=== PATIENT | male | born 1930 | race Caucasian/White ===

== ENCOUNTER 2017-07-01 08:43 | Inpatient (IN) | payer MEDICARE, BC ==
[2017-07-01 09:30] LABS: BASOPHILS % (AUTO) 0 % (0-3); EOSINOPHILS % (AUTO) 0 % (0-9); HEMATOCRIT 41 % (39-53); MEAN CORPUSCULAR HGB CONC 34.8 gm/dl (32.0-36.0); MEAN CORPUSCULAR VOLUME 87 fL (80-100); MONOCYTES % (AUTO) 4.8 % (0-12)
[2017-07-01 09:46] LABS: ALBUMIN 2.9 gm/dl (3.4-5.0); CALCIUM 8.7 mg/dl (8.5-10.1); POTASSIUM 4.4 mMol/L (3.5-5.1)
[2017-07-01] MEDS ORDERED: CEFTRIAXONE 1 GM PDS 1 GM in SODIUM CHLORIDE 0.9% 50 ML 50 ML IV ONE (10:19)
[2017-07-01] MEDS: SODIUM CHLORIDE 0.9% FLUSH 10 ML SOL IV PRN (10:35)
[2017-07-01] MEDS ORDERED: CEFTRIAXONE 1 GM PDS ONE (10:42)
[2017-07-01] MEDS ORDERED: ALBUTEROL NEB SOL 2.5MG/3ML 1 VIAL SOL NEB PRN (13:42)
[2017-07-01] MEDS: ALBUTEROL/IPRATROPIUM 1 VIAL SOL INH SCH ×2 (16:44→23:57)
[2017-07-01] MEDS ORDERED: WARFARIN SODIUM 3 MG TAB PO SCH (18:00)
[2017-07-02] MEDS: ALBUTEROL/IPRATROPIUM 1 VIAL SOL INH SCH ×4 (05:09→22:37)
[2017-07-02] MEDS ORDERED: CEFTRIAXONE 1 GM (PREMIX) 1 GM/50 ML SOL IV SCH (08:30)
[2017-07-02] MEDS ORDERED: CEFTRIAXONE 1 GM (PREMIX) 1 GM/50 ML SOL IV ONE (09:27)
[2017-07-02] MEDS: AZITHROMYCIN 250 MG TAB PO SCH (09:32)
[2017-07-02] MEDS: PREDNISONE 20 MG TAB PO SCH (09:32)
[2017-07-02] MEDS: SODIUM CHLORIDE 0.9% FLUSH 10 ML SOL IV PRN (09:34)
[2017-07-02] MEDS: SODIUM CHLORIDE 0.9% FLUSH 10 ML SOL IV SCH (16:02)
[2017-07-02] MEDS ORDERED: WARFARIN SODIUM 5 MG TAB PO SCH (18:00)
[2017-07-03] MEDS: SODIUM CHLORIDE 0.9% FLUSH 10 ML SOL IV SCH ×4 (02:42→22:50)
[2017-07-03] MEDS: ALBUTEROL/IPRATROPIUM 1 VIAL SOL INH SCH ×4 (05:51→22:45)
[2017-07-03 07:33] LABS: BASOPHILS % (AUTO) 0 % (0-3); CALCIUM 8.2 mg/dl (8.5-10.1); EOSINOPHILS % (AUTO) 0 % (0-9); HEMATOCRIT 35 % (39-53); MEAN CORPUSCULAR HGB CONC 33.7 gm/dl (32.0-36.0); MEAN CORPUSCULAR VOLUME 87 fL (80-100); NEUTROPHILS % (AUTO) 90.8 % (37-80)
[2017-07-03] MEDS: PREDNISONE 20 MG TAB PO SCH (08:39)
[2017-07-03] MEDS: AZITHROMYCIN 250 MG TAB PO SCH (08:39)
[2017-07-03] MEDS ORDERED: CEFTRIAXONE 1 GM PDS 1 GM in SODIUM CHLORIDE 0.9% 50 ML 50 ML IV ONE (09:00)
[2017-07-03] MEDS ORDERED: SODIUM CHLORIDE 0.9% 50 ML 50 ML IV ONE (09:06)
[2017-07-03] MEDS ORDERED: CEFTRIAXONE 1 GM PDS ONE (09:06)
[2017-07-03] MEDS: SODIUM CHLORIDE 0.9% FLUSH 10 ML SOL IV PRN (10:01)
[2017-07-03] MEDS ORDERED: WARFARIN SODIUM 4 MG TAB PO ONE (18:00)
[2017-07-04] MEDS ORDERED: ACETAMINOPHEN 325 MG PO ONE (02:40)
[2017-07-04] MEDS: SODIUM CHLORIDE 0.9% FLUSH 10 ML SOL IV SCH ×2 (05:17→10:01)
[2017-07-04] MEDS: ALBUTEROL/IPRATROPIUM 1 VIAL SOL INH SCH (05:57)
[2017-07-04] MEDS: AZITHROMYCIN 250 MG TAB PO SCH (10:01)
[2017-07-04] MEDS: PREDNISONE 20 MG TAB PO SCH (10:01)
[2017-07-04 10:40] VITALS: BP 132/74; PULSE 85; RESP 18; TEMP 98; O2SAT 96
== END 2017-07-04 11:05 | DRG 194 ==
LOC: ED 08:43 → ACUTE CARE 10:23
PROVIDERS: ADMIT Family Medicine; ATTEND Family Medicine
DX: J18.1 Lobar pneumonia, unspecified organism (principal); R09.02 Hypoxemia; Z87.891 Personal history of nicotine dependence; C34.90 Malignant neoplasm of unspecified part of unspecified bronchus or lung; I48.91 Unspecified atrial fibrillation; Z79.01 Long term (current) use of anticoagulants
CPT/HCPCS: 36415; 71045; 71260; 80048; 80053; 85025; 85610; 87804; 94150; 94640; 99238; 99283; 99284; J0696; J7620; Q9967; A6232; A9270-GY

== ENCOUNTER 2017-11-09 22:09 | Inpatient (IN) | payer MEDICARE, BC ==
[2017-11-09 22:36] LABS: BASOPHILS % (AUTO) 2 % (0-3); EOSINOPHILS % (AUTO) 0 % (0-9); HEMATOCRIT 37 % (39-53); HEMOGLOBIN 12.9 gm/dl (13.5-17.7); LYMPHOCYTES % (AUTO) 4.77 % (10-50); MEAN CORPUSCULAR HEMOGLOBIN 29.3 pg (27.0-32.0); MEAN CORPUSCULAR HGB CONC 35.1 gm/dl (32.0-36.0); MEAN CORPUSCULAR VOLUME 83 fL (80-100); MONOCYTES % (AUTO) 0.6 % (0-12); NEUTROPHILS % (AUTO) 92.6 % (37-80)
[2017-11-09 22:47] LABS: INR 5.38 (0.86-1.12)
[2017-11-09 22:48] LABS: ALBUMIN 1.9 gm/dl (3.4-5.0); BILIRUBIN,TOTAL 0.7 mg/dl (0.2-1.0); CALCIUM 9.4 mg/dl (8.5-10.1); CARBON DIOXIDE 35.6 mEq/L (21-32); CREATININE 1.17 mg/dl (0.80-1.30); POTASSIUM 4.6 mMol/L (3.5-5.1); TOTAL PROTEIN 7.8 gm/dl (6.4-8.2)
[2017-11-09] MEDS ORDERED: CEFTRIAXONE 1 GM PDS 1 GM in SODIUM CHLORIDE 0.9% 50 ML 50 ML IV ONE (22:52)
[2017-11-09] MEDS ORDERED: SOLUMEDROL 125 MG/2 ML 125 MG/2 ML PDS IV ONE (22:52)
[2017-11-09] MEDS ORDERED: CEFTRIAXONE 1 GM PDS ONE (23:02)
[2017-11-09] MEDS ORDERED: SOLUMEDROL 125 MG/2 ML 125 MG/2 ML PDS ONE (23:02)
[2017-11-09] MEDS ORDERED: ALBUTEROL HFA 60 PUFF/INHALER INH PRN (23:53)
[2017-11-09] MEDS ORDERED: ACETAMINOPHEN 325 MG PO PRN (23:53)
[2017-11-09] MEDS ORDERED: TRAMADOL HYDROCHLORIDE 50 MG TAB PO PRN (23:53)
[2017-11-09] MEDS ORDERED: GUAIFENESIN 200 MG/10 ML SOL PO PRN (23:53)
[2017-11-09] MEDS ORDERED: MAGNESIUM HYDROXIDE 30 ML SUS PO PRN (23:53)
[2017-11-10] MEDS: SODIUM CHLORIDE 0.9% 1000ML 1,000 ML IV SCH ×2 (00:47→14:15)
[2017-11-10] MEDS: AZITHROMYCIN 500 MG PDS IV SCH ×2 (01:03→23:57)
[2017-11-10] MEDS: ALBUTEROL/IPRATROPIUM 1 VIAL SOL INH PRN (04:11)
[2017-11-10 09:05] LABS: APPEARANCE,URINE Clear; BILIRUBIN,URINE NEGATIVE (NEGATIVE); COLOR,URINE Dark yellow; GLUCOSE, URINE (UA) NEGATIVE (NEGATIVE); KETONES,URINE NEGATIVE (NEGATIVE); LEUKOCYTE ESTERASE ,URINE NEGATIVE (NEGATIVE); NITRATE,URINE NEGATIVE (NEGATIVE); OCCULT BLOOD,URINE NEGATIVE (NEG-TRACE); UROBILINOGEN,URINE 0.2 (0.2-1.0 EU)
[2017-11-10 09:18] LABS: BACTERIA 2+ (< 1+); CRYSTALS NEGATIVE (0-3 AVE/HPF); EPITHELIAL CELLS NEGATIVE (SQUAMOUS); RBC,URINE NEGATIVE (0-3AV/HPF); WBC,URINE NEGATIVE (0-5AV/HPF)
[2017-11-10] MEDS ORDERED: DM/GUAIFENESIN SYRUP 10 ML SYRP PO PRN (09:30)
[2017-11-10] MEDS: SOLUMEDROL 125 MG/2 ML 125 MG/2 ML PDS IV SCH ×3 (09:42→20:55)
[2017-11-10] MEDS: FUROSEMIDE 20 MG TAB PO SCH (09:43)
[2017-11-10] MEDS: Non-Formulary Medication MISC (Umeclidinium Bromide [Incruse Ellipta] 1 PUFF) INH SCH (12:51)
[2017-11-10] MEDS: BUDESONIDE/FORMOTEROL 160/4.5 AER INH SCH (12:52)
[2017-11-11] MEDS: ALBUTEROL/IPRATROPIUM 1 VIAL SOL INH PRN ×2 (01:18→12:42)
[2017-11-11] MEDS: SOLUMEDROL 125 MG/2 ML 125 MG/2 ML PDS IV SCH ×2 (02:51→08:56)
[2017-11-11] MEDS: SODIUM CHLORIDE 0.9% 1000ML 1,000 ML IV SCH ×2 (06:05→16:11)
[2017-11-11 08:08] LABS: CALCIUM 8.5 mg/dl (8.5-10.1); CREATININE 0.97 mg/dl (0.80-1.30); POTASSIUM 4.5 mMol/L (3.5-5.1)
[2017-11-11 08:24] LABS: BASOPHILS % (AUTO) 0 % (0-3); EOSINOPHILS % (AUTO) 0 % (0-9); HEMATOCRIT 33 % (39-53); LYMPHOCYTES % (AUTO) 1.06 % (10-50); MEAN CORPUSCULAR HEMOGLOBIN 28.5 pg (27.0-32.0); MEAN CORPUSCULAR HGB CONC 33.3 gm/dl (32.0-36.0); MEAN CORPUSCULAR VOLUME 85 fL (80-100); MONOCYTES % (AUTO) 1.8 % (0-12); NEUTROPHILS % (AUTO) 96.8 % (37-80)
[2017-11-11] MEDS ORDERED: FUROSEMIDE 20mg SOL ONE (08:49)
[2017-11-11] MEDS: FUROSEMIDE 20 MG TAB PO SCH (08:56)
[2017-11-11] MEDS: Non-Formulary Medication MISC (Umeclidinium Bromide [Incruse Ellipta] 1 PUFF) INH SCH (09:02)
[2017-11-11] MEDS: BUDESONIDE/FORMOTEROL 160/4.5 AER INH SCH (09:02)
[2017-11-11] MEDS: PREDNISONE 20 MG TAB PO SCH (12:33)
[2017-11-11] MEDS: AZITHROMYCIN 250 MG TAB PO SCH (21:30)
[2017-11-12] MEDS: SODIUM CHLORIDE 0.9% 1000ML 1,000 ML IV SCH ×2 (02:48→13:40)
[2017-11-12] MEDS ORDERED: ALBUTEROL/IPRATROPIUM 1 VIAL SOL ONE ×2 (06:02→08:01)
[2017-11-12] MEDS: ALBUTEROL/IPRATROPIUM 1 VIAL SOL INH PRN (06:03)
[2017-11-12 07:30] LABS: CALCIUM 8.4 mg/dl (8.5-10.1); CREATININE 0.85 mg/dl (0.80-1.30); POTASSIUM 5.1 mMol/L (3.5-5.1)
[2017-11-12] MEDS: ALBUTEROL NEB SOL 2.5MG/3ML 1 VIAL SOL NEB PRN ×2 (08:43→13:43)
[2017-11-12 08:45] LABS: INR 7.43 (0.86-1.12)
[2017-11-12] MEDS ORDERED: VITAMIN K PO SCH (09:00)
[2017-11-12] MEDS: Non-Formulary Medication MISC (Umeclidinium Bromide [Incruse Ellipta] 1 PUFF) INH SCH (09:32)
[2017-11-12] MEDS: BUDESONIDE/FORMOTEROL 160/4.5 AER INH SCH (09:32)
[2017-11-12] MEDS: PREDNISONE 20 MG TAB PO SCH (09:33)
[2017-11-12] MEDS: AZITHROMYCIN 250 MG TAB PO SCH (09:33)
[2017-11-12] MEDS: FUROSEMIDE 20 MG TAB PO SCH (09:33)
[2017-11-12 09:45] LABS: BASOPHILS % (AUTO) 0 % (0-3); EOSINOPHILS % (AUTO) 1 % (0-9); HEMATOCRIT 34 % (39-53); HEMOGLOBIN 10.9 gm/dl (13.5-17.7); LYMPHOCYTES % (AUTO) 2.1 % (10-50); MEAN CORPUSCULAR HGB CONC 32.6 gm/dl (32.0-36.0); MEAN CORPUSCULAR VOLUME 87 fL (80-100); NEUTROPHILS % (AUTO) 93.3 % (37-80)
[2017-11-12] MEDS: ALBUTEROL/IPRATROPIUM 1 VIAL SOL INH SCH ×3 (11:14→23:18)
[2017-11-13] MEDS: SODIUM CHLORIDE 0.9% 1000ML 1,000 ML IV SCH (00:22)
[2017-11-13] MEDS: ALBUTEROL NEB SOL 2.5MG/3ML 1 VIAL SOL NEB PRN (01:31)
[2017-11-13] MEDS ORDERED: FUROSEMIDE 20mg SOL IV ONE (02:00)
[2017-11-13] MEDS: ALBUTEROL/IPRATROPIUM 1 VIAL SOL INH SCH ×4 (04:12→23:27)
[2017-11-13 07:44] LABS: INR 2.38 (0.86-1.12)
[2017-11-13] MEDS: FUROSEMIDE 20 MG TAB PO SCH (09:04)
[2017-11-13] MEDS: PREDNISONE 20 MG TAB PO SCH (09:05)
[2017-11-13] MEDS: Non-Formulary Medication MISC (Umeclidinium Bromide [Incruse Ellipta] 1 PUFF) INH SCH (09:06)
[2017-11-13] MEDS: BUDESONIDE/FORMOTEROL 160/4.5 AER INH SCH (09:06)
[2017-11-13] MEDS: AZITHROMYCIN 250 MG TAB PO SCH (09:08)
[2017-11-13] MEDS ORDERED: PIPERACILLIN/TAZOBACT 3.375 GM PDS IV ONE ×3 (12:50→23:35)
[2017-11-13] MEDS: FUROSEMIDE 40 MG SOL IV SCH ×2 (13:47→20:55)
[2017-11-13] MEDS: SOLUMEDROL 125 MG/2 ML 125 MG/2 ML PDS IV SCH ×3 (13:47→23:38)
[2017-11-13] MEDS: PIPERACILLIN/TAZOBACT 3.375 GM 4.5 GM in SODIUM CHLORIDE 0.9% 100 ML 100 ML IV SCH ×2 (13:48→17:53)
[2017-11-13] MEDS ORDERED: SODIUM CHLORIDE 0.9% 100 ML 100 ML IV ONE ×2 (17:05→23:36)
[2017-11-13] MEDS ORDERED: WARFARIN SODIUM 1 MG TAB PO SCH (18:00)
[2017-11-13] MEDS: LORAZEPAM 0.5 MG TAB PO PRN (18:50)
[2017-11-14] MEDS: PIPERACILLIN/TAZOBACT 3.375 GM 4.5 GM in SODIUM CHLORIDE 0.9% 100 ML 100 ML IV SCH ×4 (00:26→18:14)
[2017-11-14] MEDS: LORAZEPAM 0.5 MG TAB PO PRN ×2 (00:27→20:50)
[2017-11-14] MEDS: ALBUTEROL/IPRATROPIUM 1 VIAL SOL INH SCH ×4 (05:20→23:22)
[2017-11-14] MEDS ORDERED: SODIUM CHLORIDE 0.9% 100 ML 100 ML IV ONE (06:20)
[2017-11-14] MEDS ORDERED: PIPERACILLIN/TAZOBACT 3.375 GM PDS IV ONE ×2 (06:20→23:47)
[2017-11-14] MEDS: SOLUMEDROL 125 MG/2 ML 125 MG/2 ML PDS IV SCH ×4 (06:54→23:30)
[2017-11-14 08:12] LABS: INR 2.18 (0.86-1.12)
[2017-11-14] MEDS: Non-Formulary Medication MISC (Umeclidinium Bromide [Incruse Ellipta] 1 PUFF) INH SCH (08:55)
[2017-11-14] MEDS: FUROSEMIDE 40 MG SOL IV SCH ×2 (08:56→20:37)
[2017-11-14] MEDS: BUDESONIDE/FORMOTEROL 160/4.5 AER INH SCH (08:56)
[2017-11-14] MEDS: AZITHROMYCIN 250 MG TAB PO SCH (08:56)
[2017-11-14 09:14] LABS: CALCIUM 8.4 mg/dl (8.5-10.1); CREATININE 1.08 mg/dl (0.80-1.30); POTASSIUM 4.5 mMol/L (3.5-5.1)
[2017-11-14 09:16] LABS: HEMATOCRIT 36 % (39-53); HEMOGLOBIN 11.6 gm/dl (13.5-17.7); MEAN CORPUSCULAR HEMOGLOBIN 28.4 pg (27.0-32.0); MEAN CORPUSCULAR HGB CONC 32.2 gm/dl (32.0-36.0); MEAN CORPUSCULAR VOLUME 88 fL (80-100)
[2017-11-14 09:24] LABS: MEAN CORPUSCULAR HEMOGLOBIN 28.3 pg (27.0-32.0)
[2017-11-14 09:54] LABS: BAND NEUTROPHILS % (MANUAL) 0 %; BASOPHILS % (MANUAL) 0 % (0-3); EOSINOPHILS % (MANUAL) 0 % (0-9); LYMPHOCYTES % (MANUAL) 6 % (10-50); MONOCYTES % (MANUAL) 4 % (0-12); NEUTROPHILS % (MANUAL) 90 % (37-80)
[2017-11-14 09:55] LABS: ANISOCYTOSIS SLIGHT
[2017-11-14] MEDS ORDERED: WARFARIN SODIUM 3 MG TAB PO SCH (18:00)
[2017-11-15] MEDS: PIPERACILLIN/TAZOBACT 3.375 GM 4.5 GM in SODIUM CHLORIDE 0.9% 100 ML 100 ML IV SCH ×2 (05:44)
[2017-11-15] MEDS: SOLUMEDROL 125 MG/2 ML 125 MG/2 ML PDS IV SCH (05:44)
[2017-11-15] MEDS: ALBUTEROL/IPRATROPIUM 1 VIAL SOL INH SCH ×3 (05:44→17:20)
[2017-11-15 07:57] LABS: HEMATOCRIT 37 % (39-53); HEMOGLOBIN 11.4 gm/dl (13.5-17.7); MEAN CORPUSCULAR HEMOGLOBIN 28.1 pg (27.0-32.0); MEAN CORPUSCULAR VOLUME 91 fL (80-100)
[2017-11-15 08:03] LABS: CALCIUM 8.3 mg/dl (8.5-10.1); CARBON DIOXIDE 40.4 mEq/L (21-32); CREATININE 1.22 mg/dl (0.80-1.30); POTASSIUM 2.9 mMol/L (3.5-5.1)
[2017-11-15 08:16] LABS: INR 3.65 (0.86-1.12)
[2017-11-15] MEDS ORDERED: POTASSIUM CHLORIDE 10 MEQ TER PO SCH (08:30)
[2017-11-15] MEDS: AZITHROMYCIN 250 MG TAB PO SCH (08:33)
[2017-11-15] MEDS: Non-Formulary Medication MISC (Umeclidinium Bromide [Incruse Ellipta] 1 PUFF) INH SCH (08:33)
[2017-11-15] MEDS: BUDESONIDE/FORMOTEROL 160/4.5 AER INH SCH (08:33)
[2017-11-15] MEDS: PREDNISONE 20 MG TAB PO SCH (08:34)
[2017-11-15] MEDS ORDERED: FUROSEMIDE 40 MG SOL IV SCH (09:00)
[2017-11-15] MEDS ORDERED: NOVOLOG FLEXPEN SC ONE (09:00)
[2017-11-15 11:53] LABS: BAND NEUTROPHILS % (MANUAL) 3 %; NEUTROPHILS % (MANUAL) 96 % (37-80)
[2017-11-15 11:54] LABS: ANISOCYTOSIS SLIGHT AMT; BASOPHILS % (MANUAL) 1 % (0-3); EOSINOPHILS % (MANUAL) 0 % (0-9); LYMPHOCYTES % (MANUAL) 0 % (10-50); MONOCYTES % (MANUAL) 1 % (0-12); OVALOCYTES PRESENT; PLATELET MORPHOLOGY COMMENT ADEQUATE; POIKILOCYTOSIS SLIGHT AMT
[2017-11-16] MEDS: ALBUTEROL/IPRATROPIUM 1 VIAL SOL INH SCH ×2 (00:21→07:45)
[2017-11-16 07:17] VITALS: BP 153/87; TEMP 96.4
[2017-11-16 07:21] LABS: CREATININE 1.12 mg/dl (0.80-1.30); POTASSIUM 3.2 mMol/L (3.5-5.1)
[2017-11-16 07:24] LABS: CARBON DIOXIDE 44.9 mEq/L (21-32)
[2017-11-16 07:58] VITALS: PULSE 86; RESP 28; O2SAT 96
[2017-11-16] MEDS: LORAZEPAM 0.5 MG TAB PO PRN (08:35)
[2017-11-16 08:51] LABS: HEMATOCRIT 32 % (39-53); HEMOGLOBIN 10.5 gm/dl (13.5-17.7); MEAN CORPUSCULAR HEMOGLOBIN 28.6 pg (27.0-32.0); MEAN CORPUSCULAR HGB CONC 32.4 gm/dl (32.0-36.0); MEAN CORPUSCULAR VOLUME 88 fL (80-100)
[2017-11-16] MEDS: BUDESONIDE/FORMOTEROL 160/4.5 AER INH SCH (08:55)
[2017-11-16] MEDS: Non-Formulary Medication MISC (Umeclidinium Bromide [Incruse Ellipta] 1 PUFF) INH SCH (08:55)
[2017-11-16] MEDS: AZITHROMYCIN 250 MG TAB PO SCH (08:57)
[2017-11-16] MEDS: PREDNISONE 20 MG TAB PO SCH (09:02)
[2017-11-16 15:19] LABS: ANISOCYTOSIS SLIGHT AMT; BAND NEUTROPHILS % (MANUAL) 1 %; BASOPHILS % (MANUAL) 0 % (0-3); EOSINOPHILS % (MANUAL) 0 % (0-9); LYMPHOCYTES % (MANUAL) 0 % (10-50); MONOCYTES % (MANUAL) 0 % (0-12); NEUTROPHILS % (MANUAL) 99 % (37-80); OVALOCYTES PRESENT; POIKILOCYTOSIS SLIGHT AMT
== END 2017-11-16 10:30 | DRG 194 ==
LOC: ED 22:09 → ACUTE CARE 23:37
PROVIDERS: ADMIT Family Medicine; ATTEND Family Medicine
DX: I48.91 Unspecified atrial fibrillation (principal); J18.9 Pneumonia, unspecified organism; R64 Cachexia; R06.4 Hyperventilation; R50.9 Fever, unspecified; R06.00 Dyspnea, unspecified; D72.829 Elevated white blood cell count, unspecified; J44.1 Chronic obstructive pulmonary disease with (acute) exacerbation; J90 Pleural effusion, not elsewhere classified; J84.10 Pulmonary fibrosis, unspecified; R06.02 Shortness of breath; Z79.01 Long term (current) use of anticoagulants; I10 Essential (primary) hypertension; I48.2 Chronic atrial fibrillation
CPT/HCPCS: 36415; 51798; 71045; 71260; 80048; 80053; 81001; 85007; 85025; 85027; 85610; 87040; 87088; 94150; 94640; 94664; 94669; 94762; 96374; 99070; 99222; 99291; J0456; J0696; J1940; J2543; J2930; J7613; Q9967; A6219; A6232; A9270-GY; J1815